=== PATIENT | female | born 2000 | race African-American/Black ===

== ENCOUNTER 2024-02-27 10:27 | Emergency (ER) | payer OTHER ==
[~2024-02-27] VITALS: Ht 154.9 cm; Wt 45.9 kg
[2024-02-27 11:00] VITALS: TEMP 98.2
[2024-02-27] MEDS: ACETAMINOPHEN 325 MG TAB PO ONE (11:23)
[2024-02-27 11:49] LABS: BASOPHILS % 0.4 % (0.0-1.0); EOSINOPHILS # (AUTO) 0.1 (0.0-0.4); EOSINOPHILS % 0.9 % (0.0-6.0); HEMATOCRIT 35.1 % (34.2-44.1); HEMOGLOBIN 11.9 g/dL (12.0-16.0); LYMPHOCYTES # (AUTO) 1.7 (1.0-3.2); LYMPHOCYTES % 32.3 % (18.0-39.1); MEAN CORPUSCULAR HGB CONC 33.9 g/dL (31-35); MEAN CORPUSCULAR VOLUME 88.4 fL (81-99); MONOCYTES # (AUTO) 0.5 (0.2-0.8); MONOCYTES % 9.2 % (4.4-11.3); PLATELET COUNT 310 x10e3/uL (140-360); RED BLOOD COUNT 3.97 x10e6/uL (3.6-5.1); RED CELL DISTRIBUTION WIDTH 13.2 % (11.7-14.4); WHITE BLOOD COUNT 5.32 x10e3/uL (4.8-10.8)
[2024-02-27 12:19] LABS: ALBUMIN 4.6 g/dL (3.5-5.0); ALBUMIN/GLOBULIN RATIO 1.5 (0.8-2.0); ANION GAP 14.8 mmol/L (8-16); BILIRUBIN,TOTAL 0.7 mg/dL (0.2-1.2); CALCIUM 9.8 mg/dL (8.4-10.2); CREATININE, SERUM 0.68 mg/dL (0.57-1.11); TOTAL PROTEIN 7.7 g/dL (6.5-8.1)
[2024-02-27 12:26] LABS: POTASSIUM 2.8 mmol/L (3.5-5.1)
[2024-02-27] MEDS: SODIUM CHLORIDE 0.9% 1000ML 1,000 ML IV STA (12:28)
[2024-02-27 12:34] LABS: BILIRUBIN,URINE SMALL (NEGATIVE); CLARITY,URINE CLOUDY (CLEAR); COLOR,URINE YELLOW (YELLOW); GLUCOSE, URINE NEGATIVE (NEGATIVE); KETONES,URINE 2+ (NEGATIVE); LEUKOCYTE ESTERASE ,URINE NEGATIVE (NEGATIVE); NITRITE,URINE NEGATIVE (NEGATIVE); PH,URINE 6 (5 - 7); URINE UROBILINOGEN 0.2 mg/dL (0.2 - 1)
[2024-02-27 12:35] LABS: PROTEIN,URINE DIPSTICK 1+ (NEGATIVE)
[2024-02-27 12:42] LABS: BACTERIA,URINE MANY /HPF; EPITHELIAL CELLS,URINE MODERATE /LPF; RBC,URINE 0-5 /HPF (0-5)
[2024-02-27 13:03] LABS: HCG,QUANTITATIVE 20958.16 mIU/mL (0-10)
[2024-02-27] MEDS: POTASSIUM CHLORIDE 20 MEQ TAB CR PO ONE (13:05)
[2024-02-27 13:52] LABS: AMPHETAMINES SCREEN,URINE NEGATIVE (NEGATIVE); BENZODIAZEPINES SCREEN,URINE NEGATIVE (NEGATIVE); OPIATES SCREEN,URINE NEGATIVE (NEGATIVE); PHENCYCLIDINE SCREEN,URINE NEGATIVE (NEGATIVE)
[2024-02-27 13:53] LABS: CANNABINOIDS SCREEN,URINE POSITIVE (NEGATIVE); METHADONE SCREEN, URINE NEGATIVE (NEGATIVE)
[2024-02-27 14:15] VITALS: PULSE 87; RESP 16
[2024-02-27] MEDS ORDERED: MACROBID 100 M100 MG PO (14:24)
[2024-02-27 14:32] VITALS: BP 107/74; PULSE 76; RESP 16; O2SAT 99
== END 2024-02-27 14:32 | disposition home or self-care (01) ==
LOC: ER 10:47
DX: O26.891 Other specified pregnancy related conditions, first trimester (principal); R82.71 Bacteriuria; E87.6 Hypokalemia
CPT/HCPCS: 36415; 76801; 76817; 80053; 80307; 81001; 84702; 85025; 99284; J7030